=== PATIENT | male | born 1970 | race Caucasian/White ===

== ENCOUNTER → 2024-09-30 06:59 | Outpatient (REF) | payer OTHER, SELFPAY | LOC: RCS 06:59 | PROVIDERS: ATTENDING PHYSICIAN Internal Medicine Cardiovascular Disease; FAMILY PHYSICIAN Family Medicine | DX: I48.91 Unspecified atrial fibrillation (principal) | CPT/HCPCS: 93306 ==

== ENCOUNTER → 2024-10-12 17:34 | Outpatient (REF) | payer OTHER, SELFPAY | LOC: DHSLP 17:34 | PROVIDERS: ATTENDING PHYSICIAN Internal Medicine Critical Care Medicine; FAMILY PHYSICIAN Internal Medicine Cardiovascular Disease | DX: G47.33 Obstructive sleep apnea (adult) (pediatric) (principal) | CPT/HCPCS: 95800 ==

== ENCOUNTER 2024-10-21 07:13 | Day surgery (SDC) | payer OTHER, SELFPAY ==
--- NOTE | 2024-10-21 12:32 | ITS.CL.CARDI ---
Buttonhole Maker Hand - Cardioversion
Cardioversion
Procedure Report:
Date of Procedure: October 21 2024
Procedure: Cardioversion
Indication: Symptomatic atrial fibrillation
Performing Physician: Josias Shine DO, FACC
Technique: The patient was brought to the holding area. Signed informed consent was obtained. A time out was called and performed. The patient was anesthetized by the anesthesia service. Anticoagulation status was reviewed and appropriate. R2 pads
were placed anteriorly and posteriorly. A 250 J synchronized biphasic shock restored normal sinus rhythm without significant bradycardia. There were no complications.
Conclusion: Uncomplicated cardioversion from atrial fibrillation to sinus rhythm.
Recommendation: Routine post cardioversion care. Continue correction anticoagulation.
== END 2024-10-21 10:48 | disposition home or self-care (01) ==
LOC: CATH 07:13
PROVIDERS: ATTENDING PHYSICIAN Nuclear Medicine Nuclear Cardiology; FAMILY PHYSICIAN Family Medicine; OTHER PHYSICIAN Internal Medicine Cardiovascular Disease
DX: I48.19 Other persistent atrial fibrillation (principal); Z79.01 Long term (current) use of anticoagulants; I08.1 Rheumatic disorders of both mitral and tricuspid valves; I70.0 Atherosclerosis of aorta; I10 Essential (primary) hypertension; E78.5 Hyperlipidemia, unspecified; R91.8 Other nonspecific abnormal finding of lung field
CPT/HCPCS: 93312; 93320; 93325; 92960; 93005

== ENCOUNTER → 2024-12-14 06:35 | Outpatient (REF) | payer OTHER, SELFPAY | LOC: REG 06:35 | PROVIDERS: ATTENDING PHYSICIAN Internal Medicine Cardiovascular Disease | DX: I48.91 Unspecified atrial fibrillation (principal) | CPT/HCPCS: 36415; 84443 ==

== ENCOUNTER 2025-01-05 13:15 | Inpatient (IN) | payer OTHER, SELFPAY ==
[2024-12-30 08:58] VITALS: BMI 27.3
--- NOTE | 2024-12-30 09:07 | HPS.HSE ---
Family Physician
-
Family Physician: Coleen Michelle DO
Chief Complaint
-
Persistent atrial fibrillation.
History of Present Illness
The patient is a 54 year old male presenting today for persistent atrial fibrillation. The patient reports a history of mild fatigue and decreased exercise tolerance secondary to his arrhythmia. He previously underwent a remote
cardioversion and a more recent JEANE-guided cardioversion in October 2024. Unfortunately, his atrial fibrillation had returned a few days after his most recent procedure. Pharmacological therapy has been limited due to asymptomatic bradycardia at
baseline. He reports that he has been compliant with Eliquis for oral anticoagulation. He is interested in pursuing pulmonary vein isolation for further arrhythmia management at this time. He denies any current complaints today such as chest pain,
shortness of breath, palpitations, nausea, vomiting, diarrhea, lightheadedness, dizziness, cough, sore throat, or fever.
Medical History
Past Medical History
Past Medical History: Reports Other
Additional Past Medical History:
1. Persistent atrial fibrillation, status post cardioversion x2; oral anticoagulation with Eliquis.
2. Sinus bradycardia, asymptomatic.
3. Hypertension.
4. Hyperlipidemia.
5. Mitral valve prolapse.
6. Mild-moderate mitral regurgitation.
7. Mild tricuspid regurgitation.
8. Pulmonary nodules, previously evaluated by Pulmonary.
9. Eczema.
10. Mild hyperkalemia.
11. Remote history of tobacco abuse.
12. Daily alcohol.
Past Surgical History: Reports Other
Additional Past Surgical History:
1. JEANE-guided cardioversion.
2. Remote cardioversion.
3. [place] teeth extraction.
Social History
Tobacco: Former Smoker (He is a former less than 1 pack per day cigarette smoker who quit tobacco use altogether rather remotely. )
Alcohol: Daily (He drinks, on average, 1 beer per day. )
Personal:
Living: Other (He lives with his in a 2 story home. )
Family History
Family History: Not pertinent
Allergies / Home Medications
Allergy/Medication List:
Home medications: Eliquis 5 mg p.o. twice a day.
Allergies: No known allergies.
Review of Systems
-
A 12 point ROS was completed and negative except as noted: Yes
Physical Exam
Vital Signs
Blood pressure 102/67. Heart rate 65. Respirations 18. Pulse ox 100% on room air.
Height 6 feet, 2 inches. Weight 96.3 kg. BMI 27.3.
Physical Exam
General: Well Developed, Well Nourished and No Apparent Distress
HEENT: NormoCephalic, Moist mucous membranes, Atraumatic and PERRLA
Respiratory: Clear
Cardiac: Irregular Rhythm
GI: Soft, Non Tender and Non Distended
Musculoskeletal: No Edema and Normal Gait & Station
Skin: Warm and Dry
Neuro: AO x 3 and Nonfocal/grossly intact
Laboratory Results
-
DIAGNOSTIC STUDIES as of 12/30/2024: White blood cell count 6.6. Hemoglobin 14.3. Platelet count 297,000. PT 13.0. INR 0.93. Sodium 140. Potassium 5.2. BUN 17. Creatinine 0.9. Glucose 111. Calcium 9.9. Magnesium 2.1. AST 21. ALT 25. Albumin 4.9.
Type and screen A positive.
EKG 12/30/2024: Atrial fibrillation with slow ventricular response.
Chest CT 12/30/2024: Two accessory right middle pulmonary veins converge to form a right middle pulmonary venous ostium, and an accessory top pulmonary vein draining the superior segment of the right lower lobe forms a separate accessory ostium.
Single, individual left superior and inferior pulmonary veins. Incidental 3 mm solid pulmonary nodule in the right upper lobe. No left atrial filling defect/thrombus is identified.
Transesophageal echocardiogram 10/21/2024: Normal left ventricular chamber size and systolic function. Mild left ventricular hypertrophy. Left ventricular ejection fraction 55 to 60%. Biatrial enlargement. No left atrial appendage thrombus.
Bilateral mitral valve leaflet prolapse with mild to moderate mitral regurgitation. Mild tricuspid regurgitation. Compared to a previous echo from September 2024, findings are similar.
CT coronary calcium score 09/09/2024: Total coronary calcium score 0; ascending thoracic aorta measures 3.3 x 3.6 cm at the level of the main PA; scattered pulmonary nodules (5 mm right middle lobe, 7 mm upper lobe, 7 mm subpleural medial left upper
lobe).
Impression/Plan
-
IMPRESSION/PLAN:
1. Persistent atrial fibrillation: The patient is in need of pulmonary vein isolation with Dr. Kojo Louis on 01/05/2025. The benefits and risks of the procedure have been explained to the patient. The patient understands these risks and wishes to
proceed. He will not be required to undergo a pre-procedural transesophageal echocardiogram as he has been compliant with his home oral anticoagulation. He is aware to continue his Eliquis uninterrupted prior to his procedure. He will take no
medications the morning of his ablation.
2. Pulmonary nodule on chest CT: The nodule on his chest CT is fairly consistent with one identified on his CT coronary calcium score in September 2024. This nodule has actually decreased in size (previously noted to be 7 mm). He has already been
evaluated by pulmonary. He was advised to continue surveillance with pulmonary per their recommendations.
[2024-12-30 09:24] LABS: Hematocrit 43.6 % (39.0-52.0); Hemoglobin 14.3 g/dL (13.0-18.0); Mean Corp Hgb Conc. 32.8 g/dL (33.0-37.0); Mean Corpuscular Volume 87.0 fL (80.0-94.0); Nucleated Red Blood Cells % 0 % (-); Platelet Count 297 10^3/uL (130-400); Red Cell Dist. Width 14.0 % (11.5-14.5)
[2024-12-30 09:35] LABS: INR 0.93; PT 13.0 Sec (11.4-14.6)
[2024-12-30 09:37] LABS: ALT (SGPT) 25 U/L (0-50); AST (SGOT) 21 U/L (17-59); Albumin 4.9 g/dl (3.5-5.0); Alkaline Phosphatase 55 U/L (38-126); Blood Urea Nitrogen 17 mg/dl (9-20); Calcium 9.9 mg/dl (8.4-10.2); Carbon Dioxide 31 mmol/L (22-30); Chloride 103 mmol/L (98-107); Estimated Creatinine Clearance 108 ml/min; Glucose 111 mg/dl (70-99); Magnesium 2.1 mg/dl (1.6-2.3); Potassium 5.2 mmol/L (3.5-5.1); Sodium 140 mmol/L (135-145); Total Protein 7.9 g/dl (6.3-8.2); eGFR > 60.00
[2025-01-05] VITALS (23 sets, daily range): BP systolic 100–156; BP diastolic 41–94; BMI 28.1
--- NOTE | 2025-01-05 07:19 | ITS.CL.ABL ---
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
Ablation
Procedure Report:
Primary Care: Dr Coleen Michelle
Procedure Date: 01/05/2025
Patient History:
Patient is a pleasant 54-year-old male with a past medical history significant for hypertension, dyslipidemia, pulmonary nodules, valvular heart disease, and symptomatic persistent atrial fibrillation.
See H&P for complete details.
Indication:
Symptomatic persistent atrial fibrillation
Arrhythmia Specific History:
Prior Medical Therapies for Rate and Rhythm Control:
[ ] Beta-tanisha
[ ] Calcium channel-tanisha
[ ] Amiodarone
[ ] Dronederone
[ ] Sotalol
[ ] Flecainide
[ ] Dofetilide
X Options limited by bradycardia
[ ] Options limited by comorbid renal disease
Prior Procedural Therapies for AF/AFL:
X Cardioversion
[ ] Pulmonary Vein Isolation
[ ] Posterior Wall Isolation
[ ] Additional lines (Specify)
[ ] Surgical Chawla-MAZE or PVI (Specify)
Procedure Performed:
X AF ablation procedure (56300) -- includes LA/CS pacing, trans-septal, 3D mapping, + ICE
[ ] +IV drug (85931)
[ ] +Other Arrhythmia (90110)
X +Other AF Line/ablation (74567) -- floor line, roof line, posterior wall isolation
Risks and expected recovery has been explained in detail. Alternative options have been explored, and in a shared-decision making fashion we have decided that this was the most appropriate procedure.
Method
NPO status confirmed. Grounding pad applied. Defibrillator pads applied. Continuous surface ECG, pulse oximetry, and blood pressure were monitored. Procedure was performed under general anesthesia, with anesthesia services.
Both groins were clipped, prepped with Chloraprep, and draped in sterile fashion. Time out was called. Local anesthesia administered with bupivacaine. The right femoral vein was accessed for catheter placement, using ultrasound guidance (images
saved to record), micro-puncture needle/wire, and modified seldinger technique. 3 sheaths were placed. The following catheters were used:
[ ] Tacticath SE (D/F Curve) ablation catheter
X Viewflex 9Fr ICE catheter
X Inquiry decapolar 6Fr diagnostic catheter
[ ] CRD Hex 6Fr
X FlexCath Contour 10 Fr with PulseSelect PFA Catheter
X Advisor HD Grid Mapping Catheter, SE
[ ] AcusEmbrella Cardiovascular AcuNav 8 Fr ICE catheter
[ ]Other: [ ]
Intracardiac ultrasound (ICE) was carefully advanced into the right atrium to guide sheath placement over a J-wire, catheter placement, guide trans-septal puncture, identify potential complications, identify anatomic structures and ensure proper
contact between ablation catheter and tissue. A trace basal pericardial effusion was noted at the initiation of case. This remained unchanged throughout procedure in a case completion.
Heparin was given prior to trans-septal puncture. Heparin was given to achieve and maintain a target ACT of 300-400 seconds throughout the procedure.
Trans-septal access was performed under ICE guidance. The trans-septal puncture was performed with a SafeSept wire through a Brockenbrough needle assembly through the steerable sheath. The wire was visualized as it entered the LSPV and system
advanced under ICE guidance and fluoroscopy into the LA. The Brockenbrough needle assembly, SafeSept wire and sheath dilator were removed under negative pressure. LA pressure was measured and recorded.
ICE and 3D mapping was performed to identify relevant cardiac structures. A careful 3D map was created to assess for regions of low-voltage and abnormal electrogram signals using HD grid mapping catheter and PulseSelect catheter. Additional mapping
was performed as outlined below.
Prior to ablation, glycopyrrolate was provided. PulseSelect catheter was advanced over J-wire to the ostium of each vein. Pulmonary vein isolation was performed with ostial and antral lesions in a circumferential manner. Contact was visualized via
EAM, ICE, fluoroscopy, and EGM signals.
After accomplishing pulmonary venous isolation, mapping identified additional areas likely to be extra PV contributors to atrial fibrillation. These areas demonstrated patchy low voltage as well as complex fractionated electrograms. These areas can
be sites for the formation of rotors which can drive and maintain atrial fibrillation. These areas are known to be significant contributors to initiation and perpetuation of atrial fibrillation.
Additional energy applications/additional ablation sets targeted extra PV contributors to atrial fibrillation.
Targets for additional PFA ablation included: LA posterior wall targeted with pulsed electric field energy isolating the posterior wall of the left atrium. Posterior wall isolation was performed by anchoring the J-wire within the pulmonary vein and
placing the PulseSelect catheter in contact posterior wall as visualized by aforementioned methods.
After ablation of the posterior wall, targets remained including:
- Inferior LA floor
- Anterior LA roof
- The ridge of tissue between the left atrial appendage and the left sided pulmonary veins (Ligament of Jonathan)
These areas were ablated using pulsed electric field energy eliminating the extra PV contributors to atrial fibrillation.
Following completion of ablation lesions, sinus rhythm was restored with a 360J synchronized DCCV (initial 200J synchronized DCCV) and a post-ablation voltage/activation map was performed in sinus rhythm. Acute reconnection was noted at the left
inferior pulmonary vein. During mapping, patient entered AF spontaneously. SR was restored with an additional 360J DCCV. Repeat ablation at the left inferior pulmonary vein and right superior pulmonary vein was performed. Entrance and exit block
were confirmed for each vein and the posterior wall. Patient maintained SR for the remainder of procedure.
Catheter and sheath were removed from the left atrium and post-ablation intracardiac echo evaluation was consistent with pre-ablation with no changes and no change to pericardial effusion and there is no left atrial thrombus or left ventricle
thrombus seen. Electrophysiology study was performed. Hemostasis was obtained with figure of 8 stitch for each groin and with manual pressure. Protamine was used for reversal.
Estimated Blood Loss
5 mL
Complications
None
Fluoroscopy: 2.9 minutes; 6.34 mGy; DAP 1.12
LA Pressure: Pre 7 mmHg, post 9 mmHg
Baseline Intervals:
Rhythm: AF
QRS: 95 ms
QT: 424 ms
Post-Procedure Intervals:
W[place]: 228 ms
QRS: 106 ms
QT: 483 ms
QTc: 474 ms
AVWB: 700 ms
AVNERP/AERP: 800/660 ms
Recommendations
- Bedrest with straight-leg precautions as ordered
- Anticipate same day discharge if patient meeting clinical metrics
- Resume home medications as indicated
- Ok to resume anticoagulation tonight if patient and groin sites stable
- PPI daily for 30 days
- Plan for follow-up in office as scheduled
Kojo Louis DO, FACC, FHRS
Clinical Cardiac Lacrosse Player
cc: Dr Coleen Michelle
[2025-01-05 08:27] LABS: ACT-LR - POC 260 Seconds (116-155)
[2025-01-05 08:48] LABS: ACT-LR - POC 308 Seconds (116-155)
[2025-01-05 09:07] LABS: ACT-LR - POC 369 Seconds (116-155)
[2025-01-05 09:34] LABS: ACT-LR - POC 376 Seconds (116-155)
[2025-01-05 10:06] LABS: ACT-LR - POC 358 Seconds (116-155)
[2025-01-05 10:23] LABS: ACT-LR - POC 237 Seconds (116-155)
--- NOTE | 2025-01-05 11:27 | W.CARD.TIKOS ---
Initiate Tikosyn
-
I verify that the patient has not taken any verapamil (Isoptin/Calan), ketoconazole (Nizoral), cimetidine (Tagamet), trimethoprim (Trimpex), trimethoprim/sulfamethoxazole (Bactrim), megesterol (Megace), prochlorperazine (Compazine),
hydrochlorothiazide (HCTZ), dolutegravir (Tivicay) or any Class I or Class III anti-arrhythmic within the last three days
AND
I verify that the patient has not taken amiodarone within the last THREE months, or that the patient's amiodarone plasma concentration is <0.3 mcg/mL.
Creatinine 0.9 mg/dL (0.7-1.3) 12/30/24 09:06
Estimated Creat Clear 108 ml/min 12/30/24 09:06
Does patient have a Ventricular Conduction Abnormality: No
I have assessed the baseline QTc interval (using QT for heart rate less than 60 bpm) and deemed the patient is appropriate for Dofetilide therapy. I understand that Tikosyn is contraindicated if the QTc is >440msec (500msec in patients with
ventricular conduction abnormalities).
Baseline QTc (in msec): 445
QTc interval is greater than 440msec without conduction abnormality OR greater than 500msec with a conduction abnormality, but acceptable to proceed per Cardiology attending.
Ordering Physician: Wilfred Louis
[2025-01-05] MEDS: TIKOSYN 500 MCG PO ×2 (11:37→22:03)
--- NOTE | 2025-01-05 14:00 | PTCARENOTE ---
Assumed care of pt from cath lab radiological technologist ~1300. Pt bedrest s/p ablation and cardioversion x3. Pt laying flat. Pt AAOx3. A-fib on the tele monitor. HR 70s. BP stable. Palpable pulses throughout. No edema. Pt on RA. POX 98%. Lung sounds audible anteriorly.
Abdomen nontender. Hypoactive BSx4. No nausea. Pt reports no trouble voiding. Due to void for this RN. Right groin PVI site intact w/ figure sutures present. Site soft/ no hematoma. PIV x1 intact. No c/o pain at this time. Monitor handoff completed
w/ cath lab radiological technologist nurse. 2-hour post tikosyn dose EKG completed. Family updated at the bedside and review plan for the night. Call jessica within reach.
--- NOTE | 2025-01-05 14:59 | PTCARENOTE ---
Figure 8 sutures removed from right groin @1440. Sterile gauze and Tegaderm applied. No bleeding or hematoma. Pt reminded of precautions for R leg. HOB elevated ~30 degrees.
[2025-01-05] MEDS: ELIQUIS 5 MG PO (19:55)
--- NOTE | 2025-01-05 20:34 | PTCARENOTE ---
Received pt at change of shift OOB in chair. pt ambulating in room ad dominique. Afib on tele, HR in the 80's. pt denies any CP or SOB. Right groin site Intact, old drainage noted on dressing. No new drainage or hematoma noted at this time. Encouraged pt
to call RN with any questions/concerns. Call jessica within reach.
[2025-01-06] VITALS (7 sets, daily range): BP systolic 118–147; BP diastolic 61–81; BMI 28.1
[2025-01-06 05:00] LABS: Hematocrit 38.9 % (39.0-52.0); Hemoglobin 13.0 g/dL (13.0-18.0); Mean Corp Hgb Conc. 33.4 g/dL (33.0-37.0); Mean Corpuscular Volume 85.1 fL (80.0-94.0); Platelet Count 261 10^3/uL (130-400); Red Cell Dist. Width 14.3 % (11.5-14.5)
[2025-01-06 05:38] LABS: Blood Urea Nitrogen 18 mg/dl (9-20); Calcium 9.4 mg/dl (8.4-10.2); Carbon Dioxide 29 mmol/L (22-30); Chloride 107 mmol/L (98-107); Estimated Creatinine Clearance 118 ml/min; Glucose 123 mg/dl (70-99); Magnesium 2.1 mg/dl (1.6-2.3); Potassium 4.9 mmol/L (3.5-5.1); Sodium 138 mmol/L (135-145); eGFR > 60.00
[2025-01-06] MEDS: ELIQUIS 5 MG PO ×2 (09:38→20:37)
[2025-01-06] MEDS: TIKOSYN 500 MCG PO ×2 (09:39→21:02)
--- NOTE | 2025-01-06 09:55 | W.PN.CARDCBS ---
Addendum entered and electronically signed by Abel Saldivar MD 01/06/25 14:10:
Patient seen, interviewed and examined by me.
He tells me that he feels well. No chest pain shortness of breath palpitations or dizziness. No groin discomfort. He has been up and ambulating and overall has been feeling quite well.
Well-appearing, no acute distress
Regular rate and rhythm with normal S1 and S2, no S3 no S4. There is a grade 1/6 apical holosystolic murmur and no rubs. PMI is normally placed.
Lungs are clear to auscultation bilaterally without wheezes rales or rhonchi.
Abdomen soft nontender nondistended with normoactive bowel sounds
Bilateral groins with no hematomas, no bruits, no bleeding.
Extremities show trace pretibial edema bilaterally no clubbing or cyanosis.
Neurologic exam is grossly nonfocal.
He has persistent atrial fibrillation and underwent PVI January 06, 2028.
This hospital stay he has been initiated on dofetilide. As of this morning he received dose #3 with ECG demonstrating atrial fibrillation with a controlled ventricular rate of 51 bpm and a corrected QT interval of 464 ms.
I reviewed telemetry and there have been no ventricular arrhythmias. There have been no concerning arrhythmias, significant bradycardia arrhythmias.
I reviewed our plan to continue dofetilide loading.
Dose #5 will be tomorrow morning/tomorrow early afternoon.
Will plan for cardioversion tomorrow morning if he remains in atrial fibrillation overnight.
All of his questions have been answered.
Original Note:
Today's Communication / Plan
-
post ablation, recurrent afib
Tikosyn loading dose #3 this am
if remains in afib plan for DCCV in am
Impression / Plan
-
Primary Care: Coleen Michelle DO
Primary fruit canner: Kojo Louis DO
Impression:
Symptomatic persistent atrial fibrillation
post PVI 01/05/25
Tikosyn loading
HTN
HLD
MVP, mild-mod MR
Remote tobacco abuse
daily ETOH
Plan:
post ablation had recurrence of Afib (rates controlled)
Admitted for Tikosyn loading
remains in Afib with SVR HR 50's
groin stable
Dose #3 this am QTc remains <550
continue to load, if remains in Afib will plan DCCV in am
OAC Eliquis
Activity restrictions reviewed
f/u Dr. Louis in 3 mo
continue to monitor on tele
Progress Note - Benzol Still Operator
Subjective
Date of Service: January 06, 2025
denies cp, sob
Objective
Labs:
01/06/25 04:50
01/06/25 04:50
Labs
Hgb 13.0 g/dL (13.0-18.0) 01/06/25 04:50
Hct 38.9 % (39.0-52.0) L 01/06/25 04:50
Plt Count 261 10^3/uL (130-400) 01/06/25 04:50
PT 13.0 Sec (11.4-14.6) 12/30/24 09:06
INR 0.93 12/30/24 09:06
Sodium 138 mmol/L (135-145) 01/06/25 04:50
Potassium 4.9 mmol/L (3.5-5.1) 01/06/25 04:50
BUN 18 mg/dl (9-20) 01/06/25 04:50
Creatinine 0.8 mg/dL (0.7-1.3) 01/06/25 04:50
Glucose 123 mg/dl (70-99) H 01/06/25 04:50
Vital Signs and I&O:
Vital Signs
Temp Pulse Resp BP Pulse Ox
97.7 F 66 20 118/61 98
01/06/25 08:20 01/06/25 09:00 01/06/25 08:20 01/06/25 08:19 01/06/25 09:35
Vital Signs
Temp Pulse Resp BP Pulse Ox
97.7 F 66 20 118/61 98
01/06/25 08:20 01/06/25 09:00 01/06/25 08:20 01/06/25 08:19 01/06/25 09:35
Intake & Output
01/04/25 01/05/25 01/06/25 01/07/25
06:59 06:59 06:59 06:59
Intake Total 960 / 960
Balance 960 / 960
Physical Exam
Physical Exam
NAD, AOX3
S1, S2, irreg, irreg
CTAB, non labored
SNTND bsx4
R fem site c/d/i no HT, soft
--- NOTE | 2025-01-06 16:48 | CM ---
spoke to pt i room, he is prev indep, lives with his cass 2 story home with 3 steps to enter. he denies any dc planning needs or dme's. plan is for dc to home when medically stable.
--- NOTE | 2025-01-06 17:47 | PTCARENOTE ---
Pt denies any discomfort, encouraged to walk in halls. He remains in atrial fib at a rate of 39-70, dose #3 of tikosyn given this morning with acceptable QTc per Afia Gonzáles NP. Plan for cardioversion on 01/07 and continue current dose of tikosyn
tonight.
--- NOTE | 2025-01-06 20:00 | PTCARENOTE ---
Patient received from previous RN. OOB to chair, family at bedside. Atrial fib on CM, rates 50's, occasional asymptomatic bradying down to 39-40's; HR irregular on auscultation, pulses palpable throughout, no edema noted. Patient ambulatory and
independent in the room without issues. Voiding spontaneously in the toilet without difficulty. Abdomen SNT, round, normoactive BS. R fem site with old drainage, no hematoma, ecchymotic. POC discussed, patient in agreement, assessment of needs
ongoing.
--- NOTE | 2025-01-07 05:10 | PTCARENOTE ---
No acute issues this shift, patient slept between care. Tikosyn administered per order, EKG no changes. Intermittently ramakrishna to 39-40, rates mostly 50's throughout. VSS. Patient NPO since midnight for planned cardioversion today. Call jessica within
reach.
[2025-01-07 05:40] VITALS: BP 127/82
[2025-01-07 07:36] VITALS: BP 113/71
[2025-01-07] MEDS: ELIQUIS 5 MG PO (07:38)
[2025-01-07 09:00] VITALS: BP 148/87
[2025-01-07] MEDS: TIKOSYN 500 MCG PO (09:06)
--- NOTE | 2025-01-07 09:12 | W.PN.CARDCBS ---
Addendum entered and electronically signed by Kojo Louis DO 01/07/25 11:09:
I saw and examined the patient.
The Sonographer's note was reviewed and I agree with the note.
Comment:
Patient seen and examined. Patient resting comfortably in chair. Patient denies chest pain, shortness of breath, palpitations, weakness.
Telemetry shows sinus rhythm. Patient underwent DCCV this a.m.
QT/QTc post cardioversion stable (424/473 ms in sinus rhythm; prior in AF 438/440 ms)
Patient obtain last EKG prior to discharge if QT/QTc stable okay for DC
Will have him follow-up in office in 2 weeks and then with me as scheduled
Groin precautions again reviewed with patient
Original Note:
Today's Communication / Plan
-
Last dose Tikosyn now with 12 lead EKG in 2 hours
Post cardioversion recovery
anticipate d/c today
EKG in 2 weeks at [facility], then followup at scheduled
Impression / Plan
-
Primary Care: Coleen Michelle DO
Primary repair order clerk: Kojo Louis DO
54 y/o with symptomatic persistent AFib failed cardioversion. S/P PFA 01/05 with recurrence of AFib almost immediately post procedure. Admitted for Tikosyn load, 500mcg BID. Remained in AFib over the last 48h. Underwent CVN today with 3 shocks to
restore NSR.
IMPRESSION:
Symptomatic persistent AFib
s/p PFA 01/05/25 with recurrent AFib post op
Tikosyn loading
s/p cardioversion, 01/07/25
HTN
HLD
MVP, mild-mod MR
Remote tobacco abuse
daily ETOH
PLAN:
Tele- AFib 70s, QTc 440ms
Continued AFib on tikosyn for 48h- now s/p cvn and in SR
Continue tikosyn 500mcg BID
[id number]
Continue eliquis
right groin stable
EKG in 2 weeks at [facility]
followup w/Dr Louis thereafter
home today
Progress Note - Tower Technician
Subjective
Date of Service: January 07, 2025
Denies cp/palps/dyspnea
right groin site stable
Objective
Labs:
01/06/25 04:50
01/06/25 04:50
Labs
Hgb 13.0 g/dL (13.0-18.0) 01/06/25 04:50
Hct 38.9 % (39.0-52.0) L 01/06/25 04:50
Plt Count 261 10^3/uL (130-400) 01/06/25 04:50
PT 13.0 Sec (11.4-14.6) 12/30/24 09:06
INR 0.93 12/30/24 09:06
Sodium 138 mmol/L (135-145) 01/06/25 04:50
Potassium 4.9 mmol/L (3.5-5.1) 01/06/25 04:50
BUN 18 mg/dl (9-20) 01/06/25 04:50
Creatinine 0.8 mg/dL (0.7-1.3) 01/06/25 04:50
Glucose 123 mg/dl (70-99) H 01/06/25 04:50
Vital Signs and I&O:
Vital Signs
Temp Pulse Resp BP Pulse Ox
97.3 F 72 18 148/87 100
01/07/25 07:40 01/07/25 09:00 01/07/25 07:40 01/07/25 09:00 01/07/25 07:40
Vital Signs
Temp Pulse Resp BP Pulse Ox
97.3 F 72 18 148/87 100
01/07/25 07:40 01/07/25 09:00 01/07/25 07:40 01/07/25 09:00 01/07/25 07:40
Intake & Output
01/05/25 01/06/25 01/07/25 01/08/25
06:59 06:59 06:59 06:59
Intake Total 960 / 960 1040 / 1040
Balance 960 / 960 1040 / 1040
Physical Exam
Physical Exam
AAOx3, MAEE 5/5
RRR S1 S2 no murmurs
CTA bilat, non labored
soft abd, + bs
right groin site without ht/bleeding, non tender
bilat extremities w/palpable distal pulses, no edema
[2025-01-07 10:04] VITALS: BP 149/87
--- NOTE | 2025-01-07 11:34 | W.DS.TRANS ---
DC Summary - Manager Of Business
-
Discharge Instructions:
Sleep Apnea Risk Intermediate
Discharge Diagnosis/Procedures AFib, s/p ablation
Tikosyn load and cardioversion
Diet Low Cholesterol
Driving Restrictions No driving for 24 hours
Instructions: Dofetilide
Stand-Alone Forms: DC Instructions- Cath/EP Lab
Changes to Home Medications: Yes
Discharge Medications:
DC Medications w/original date entered in [employer]
apixaban 5 mg tablet (Eliquis) 5 mg PO BID Blood Clot Prevention/Tx 10/21/24
dofetilide 500 mcg capsule 500 mcg PO Q12H #60 caps 01/07/25
Home Medication Changes
NEW: dofetilide
Pending Results: No
--- NOTE | 2025-01-07 11:44 | CM ---
dofetilide in stock at [facility], his copay is $35/mo
[2025-01-07 11:49] VITALS: BP 135/75
--- NOTE | 2025-01-07 13:09 | PTCARENOTE ---
Pt had an uneventful recovery from a successful cardioversion, pt up walking walking around. Pt seen by . Telemetry and IV device removed. Discharge instructions reviewed with pt and his daughter regarding activity and driving
restrictions, wound care, medications and their possible side effects, reporting cares and concerns and follow up appt's. Excellent understanding verbalized. Pt ambulated out with staff and was discharged to home.
== END 2025-01-07 12:50 | disposition home or self-care (01) | DRG 274 ==
LOC: IVU 13:15
PROVIDERS: Internal Medicine; Nurse Practitioner; ADMITTING PHYSICIAN Internal Medicine Cardiovascular Disease; FAMILY PHYSICIAN Family Medicine
PROC: 02583ZF Destruction of Conduction Mechanism using Irreversible Electroporation, Percutaneous Approach (ICD-10-PCS; 2025-01-05)
PROC: 4A023FZ Measurement of Cardiac Rhythm, Percutaneous Approach (ICD-10-PCS; 2025-01-05)
PROC: 02K83ZZ Map Conduction Mechanism, Percutaneous Approach (ICD-10-PCS; 2025-01-05)
PROC: 4A0234Z Measurement of Cardiac Electrical Activity, Percutaneous Approach (ICD-10-PCS; 2025-01-05)
PROC: 5A2204Z Restoration of Cardiac Rhythm, Single (ICD-10-PCS; 2025-01-05)
DX: I48.19 Other persistent atrial fibrillation (principal); R00.1 Bradycardia, unspecified; I10 Essential (primary) hypertension; E78.5 Hyperlipidemia, unspecified; I34.1 Nonrheumatic mitral (valve) prolapse; I34.0 Nonrheumatic mitral (valve) insufficiency; E87.5 Hyperkalemia; R91.1 Solitary pulmonary nodule; Z79.01 Long term (current) use of anticoagulants; Z87.891 Personal history of nicotine dependence
CPT/HCPCS: 36415; 75572; 80048; 80053; 83735; 85025; 85027; 85347; 85610; 86850; 86900; 86901; 92960; 93005; 93656; 93657; C1730; C1732; C1733; C1769; C1894; Q9967

== ENCOUNTER 2025-01-19 09:54 | Day surgery (SDC) | payer OTHER, SELFPAY | END 2025-01-19 12:23 | disposition home or self-care (01) | LOC: CATH 09:54 | PROVIDERS: ATTENDING PHYSICIAN Internal Medicine Cardiovascular Disease; FAMILY PHYSICIAN Family Medicine; OTHER PHYSICIAN Internal Medicine Cardiovascular Disease | DX: I48.19 Other persistent atrial fibrillation (principal); Z79.01 Long term (current) use of anticoagulants | CPT/HCPCS: 92960; 93005 ==

== ENCOUNTER 2025-01-27 06:54 | Day surgery (SDC) | payer OTHER, SELFPAY ==
[2025-01-27 08:18] VITALS: BMI 22.1
--- NOTE | 2025-01-27 08:25 | ITS.CL.CARDI ---
[employer] - Cardioversion
Cardioversion
Procedure Report:
Patient examined and interviewed. Consent and timeout were subsequently performed.
Procedure: DC cardioversion for atrial fibrillation
Anesthetic: Propofol
Technique:
200 J synchronized biphasic shock with patches in AP position.
Atrial fibrillation persisted, so cardioversion was repeated with 300 J synchronized biphasic shock with patches in AP position
Sinus rhythm subsequently resulted
Complications: None
Conclusion: Successful cardioversion for recurrent paroxysmal atrial fibrillation following PFA performed in December 2024
Follow-up with Dr. Loaiza February 14, 2025 at 8 AM.
== END 2025-01-27 09:00 | disposition home or self-care (01) ==
LOC: CATH 06:54
PROVIDERS: ATTENDING PHYSICIAN Nuclear Medicine Nuclear Cardiology; FAMILY PHYSICIAN Family Medicine; OTHER PHYSICIAN Internal Medicine Cardiovascular Disease
DX: I48.0 Paroxysmal atrial fibrillation (principal); Z79.01 Long term (current) use of anticoagulants; I10 Essential (primary) hypertension
CPT/HCPCS: 92960; 93005

== ENCOUNTER 2025-03-17 09:58 | Day surgery (SDC) | payer OTHER, SELFPAY ==
--- NOTE | 2025-03-17 11:18 | ITS.CL.CARDI ---
[employer] - Cardioversion
Cardioversion
Procedure Report:
Procedure: Direct current electrical cardioversion
Pre-operative diagnosis: Persistent atrial fibrillation
Post-operative diagnosis: Persistent atrial fibrillation status post DC cardioversion to sinus rhythm
Anesthesia: MAC
Attending Physician: Hilario Sullivan MD
Procedure Description: The patient was brought to the electrophysiology laboratory in the fasting state. Adherence to anticoagulation regimen was confirmed. Informed consent was obtained from the patient prior to the start of the procedure.
Electrodes were placed on the patient and connected to an external defibrillator. Monitoring of blood pressure, ECG tracings, and pulse oximetry was initiated. The pads were applied to the patient in the anterior and posterior positions. The patient
was sedated by the anesthesiologist. A 200 joule biphasic synchronized shock was delivered to the patient under MAC anesthesia. Sinus rhythm was successfully restored. The patient recovered uneventfully from MAC anesthesia. There were no immediate
post-procedure complications. The patient left the lab in good condition. The attending physician was present throughout the entire procedure.
Impression: Successful direct current cardioversion with mandaen of sinus rhythm after one 200 joule biphasic synchronized shock.
== END 2025-03-17 12:00 | disposition home or self-care (01) ==
LOC: CATH 09:58
PROVIDERS: ATTENDING PHYSICIAN Internal Medicine Cardiovascular Disease; FAMILY PHYSICIAN Family Medicine; OTHER PHYSICIAN Internal Medicine Cardiovascular Disease
DX: I48.19 Other persistent atrial fibrillation (principal); I44.0 Atrioventricular block, first degree; I10 Essential (primary) hypertension; E78.2 Mixed hyperlipidemia; R91.8 Other nonspecific abnormal finding of lung field; Z79.01 Long term (current) use of anticoagulants
CPT/HCPCS: 92960; 93005